=== PATIENT | male | born 1945 | race Caucasian/White ===

== ENCOUNTER → 2023-12-07 11:24 | Outpatient (REF) | payer MEDICARE, OTHER, SELFPAY ==
[2023-12-07 12:12] LABS: Hematocrit 39.8 % (39.0-52.0); Hemoglobin 12.4 g/dL (13.0-18.0); Mean Corp Hgb Conc. 31.2 g/dL (33.0-37.0); Mean Corpuscular Hgb 27.9 pg (27.0-31.0); Mean Corpuscular Volume 89.6 fL (80.0-94.0); Mean Platelet Volume 10.4 fL (7.4-10.4); Platelet Count 296 10^3/uL (130-400); Red Blood Cell Count 4.44 10^6/uL (4.70-6.10); Red Cell Dist. Width 14.8 % (11.5-14.5); White Blood Cell Count 5.1 10^3/uL (4.8-10.8)
[2023-12-07 12:22] LABS: Urine Albumin Trace (Neg - Trace); Urine Bilirubin Negative (Negative); Urine Character Slightly Cloudy (Clear); Urine Color Yellow; Urine Glucose Trace (Negative); Urine Ketone Negative (Negative); Urine Leukocyte 2+ (Negative); Urine Nitrite Positive (Negative); Urine Occult Blood Negative (Negative); Urine Urobilinogen Negative (Neg - 1+)
[2023-12-07 12:41] LABS: NT-proBNP 2020 pg/ml
[2023-12-07 13:05] LABS: Urine Bacteria Moderate (Negative); Urine Red Blood Cell 0-2 /HPF (0-2); Urine White Cell 26-30 /HPF (0-5)
[2023-12-07 13:15] LABS: Urine Protein 59 mg/dl (0-12)
[2023-12-07 13:35] LABS: Albumin 3.8 g/dl (3.5-5.0); Blood Urea Nitrogen 36 mg/dl (9-20); Carbon Dioxide 28 mmol/L (22-30); Chloride 103 mmol/L (98-107); Glucose 91 mg/dl (70-99); Phosphorus 3.5 mg/dl (2.5-4.5); Potassium 4.5 mmol/L (3.5-5.1); Sodium 139 mmol/L (135-145); Uric Acid 6.1 mg/dl (3.5-8.5); eGFR 29.72
== END ==
LOC: REG 11:24
PROVIDERS: ATTENDING PHYSICIAN Internal Medicine
DX: N18.4 Chronic kidney disease, stage 4 (severe) (principal); D64.9 Anemia, unspecified; Z94.1 Heart transplant status; Z87.39 Personal history of other diseases of the musculoskeletal system and connective tissue
CPT/HCPCS: 36415; 80069; 81003; 81015; 82570; 83880; 84156; 84550; 85027

== ENCOUNTER → 2024-01-13 10:56 | Outpatient (REF) | payer MEDICARE, OTHER, SELFPAY ==
[2024-01-13 11:38] LABS: % Basophils 0.3 % (0-2); % Eosinophils 5.3 % (0-6); % Immature Granulocytes 0.3 % (0-0.5); % Lymphocytes 26.7 % (20.5-51.1); % Monocytes 9.6 % (1.7-9.3); % Neutrophils 57.8 % (42.2-75.2); Absolute Eosinophils 0.2 10^3/uL (0-0.7); Absolute Lymphocytes 1.1 10^3/uL (1.2-3.4); Absolute Monocytes 0.4 10^3/uL (0.1-0.6); Absolute Neutrophils 2.3 10^3/uL (1.4-6.5); Hematocrit 33.1 % (39.0-52.0); Hemoglobin 10.3 g/dL (13.0-18.0); Mean Corp Hgb Conc. 31.1 g/dL (33.0-37.0); Mean Corpuscular Hgb 27.7 pg (27.0-31.0); Mean Platelet Volume 9.6 fL (7.4-10.4); Nucleated Red Blood Cells % 0 % (-); Platelet Count 334 10^3/uL (130-400); Red Blood Cell Count 3.72 10^6/uL (4.70-6.10); Red Cell Dist. Width 14.3 % (11.5-14.5)
[2024-01-13 12:09] LABS: ALT (SGPT) 16 U/L (0-50); AST (SGOT) 25 U/L (17-59); Albumin 3.7 g/dl (3.5-5.0); Alkaline Phosphatase 73 U/L (38-126); Blood Urea Nitrogen 66 mg/dl (9-20); Carbon Dioxide 27 mmol/L (22-30); Chloride 106 mmol/L (98-107); Glucose 92 mg/dl (70-99); Potassium 4.4 mmol/L (3.5-5.1); Sodium 140 mmol/L (135-145); Total Bilirubin 0.4 mg/dl (0.2-1.3); Total Protein 5.8 g/dl (6.3-8.2); eGFR 18.27
== END ==
LOC: REG 10:56
PROVIDERS: ATTENDING PHYSICIAN Nurse Practitioner Adult Health
DX: D63.1 Anemia in chronic kidney disease (principal); N18.30 Chronic kidney disease, stage 3 unspecified; D51.9 Vitamin B12 deficiency anemia, unspecified; D50.9 Iron deficiency anemia, unspecified; M81.0 Age-related osteoporosis without current pathological fracture; C61 Malignant neoplasm of prostate
CPT/HCPCS: 36415; 80053; 85025

== ENCOUNTER → 2024-02-02 12:18 | Outpatient (REF) | payer MEDICARE, OTHER, SELFPAY ==
[2024-02-02 13:59] LABS: Blood Urea Nitrogen 35 mg/dl (9-20); Calcium 10.3 mg/dl (8.4-10.2); Carbon Dioxide 31 mmol/L (22-30); Chloride 103 mmol/L (98-107); Digoxin 0.9 ng/ml (0.8-2.0); Glucose 82 mg/dl (70-99); Magnesium 1.6 mg/dl (1.6-2.3); Phosphorus 3.7 mg/dl (2.5-4.5); Potassium 5.3 mmol/L (3.5-5.1); Sodium 140 mmol/L (135-145); Uric Acid 6.1 mg/dl (3.5-8.5)
[2024-02-02 14:01] LABS: Protein/creatinine Ratio 0.3; Urine Protein 11 mg/dl
[2024-02-02 14:04] LABS: NT-proBNP 1390 pg/ml
[2024-02-02 21:13] LABS: Urine Albumin Negative (Neg - Trace); Urine Bilirubin Negative (Negative); Urine Character Clear (Clear); Urine Color Yellow; Urine Glucose Negative (Negative); Urine Ketone Negative (Negative); Urine Leukocyte 2+ (Negative); Urine Nitrite Negative (Negative); Urine Occult Blood Negative (Negative); Urine Urobilinogen Negative (Neg - 1+); Urine pH 6.5 (5.0-9.0)
[2024-02-02 21:46] LABS: Urine Red Blood Cell None Seen /HPF (0-2)
[2024-02-02 21:47] LABS: Urine Bacteria Few (Negative); Urine Squamous Cell 0-2 /LPF (Few)
== END ==
LOC: REG 12:18
PROVIDERS: ATTENDING PHYSICIAN Specialist; FAMILY PHYSICIAN Internal Medicine
DX: N17.9 Acute kidney failure, unspecified (principal)
CPT/HCPCS: 36415; 80069; 80162; 81003; 81015; 82570; 83735; 83880; 83970; 84156; 84550

== ENCOUNTER → 2024-02-15 09:23 | Outpatient (REF) | payer MEDICARE, OTHER, SELFPAY ==
[2024-02-15 09:37] LABS: % Basophils 0.3 % (0-2); % Eosinophils 5.5 % (0-6); % Immature Granulocytes 0.3 % (0-0.5); % Lymphocytes 22.3 % (20.5-51.1); % Monocytes 10.1 % (1.7-9.3); % Neutrophils 61.5 % (42.2-75.2); Absolute Eosinophils 0.2 10^3/uL (0-0.7); Absolute Lymphocytes 0.7 10^3/uL (1.2-3.4); Absolute Monocytes 0.3 10^3/uL (0.1-0.6); Hematocrit 37.7 % (39.0-52.0); Hemoglobin 11.3 g/dL (13.0-18.0); Mean Corpuscular Hgb 27.3 pg (27.0-31.0); Mean Corpuscular Volume 91.1 fL (80.0-94.0); Mean Platelet Volume 8.8 fL (7.4-10.4); Platelet Count 229 10^3/uL (130-400); Red Blood Cell Count 4.14 10^6/uL (4.70-6.10); Red Cell Dist. Width 14.6 % (11.5-14.5); White Blood Cell Count 3.3 10^3/uL (4.8-10.8)
[2024-02-15 10:09] LABS: Nucleated Red Blood Cells % 0 % (-); Reticulocyte Count 1.8 % (0.4-2.8)
[2024-02-15 10:22] LABS: ALT (SGPT) 18 U/L (0-50); AST (SGOT) 26 U/L (17-59); Albumin 4.1 g/dl (3.5-5.0); Alkaline Phosphatase 68 U/L (38-126); Blood Urea Nitrogen 40 mg/dl (9-20); Calcium 9.8 mg/dl (8.4-10.2); Carbon Dioxide 30 mmol/L (22-30); Chloride 103 mmol/L (98-107); Glucose 78 mg/dl (70-99); Iron 73 ug/dl (49-181); Potassium 4.5 mmol/L (3.5-5.1); Sodium 139 mmol/L (135-145); Total Bilirubin 0.5 mg/dl (0.2-1.3); Total Protein 6.2 g/dl (6.3-8.2); eGFR 21.34
[2024-02-15 10:32] LABS: Percent Saturation 25 % (20-50); Total Iron Binding Capacity 286 ug/dl (261-462)
[2024-02-15 10:55] LABS: D-Dimer 1.23 ug/mlFEU (0.00-0.50)
[2024-02-15 11:21] LABS: PSA, Total - Diagnostic < 0.06 ng/ml (0.0-4.0)
[2024-02-15 11:40] LABS: Vitamin B12 793 pg/ml (239-931)
[2024-02-16 14:30] LABS: Erythropoietin (EPO) 22 mU/mL (4-27)
== END ==
LOC: OIDL 09:23
PROVIDERS: ATTENDING PHYSICIAN Internal Medicine Hematology & Oncology; PRIMARYCARE PHYSICIAN Internal Medicine
DX: D63.1 Anemia in chronic kidney disease (principal); N18.31 Chronic kidney disease, stage 3a; D51.9 Vitamin B12 deficiency anemia, unspecified; D50.9 Iron deficiency anemia, unspecified; C61 Malignant neoplasm of prostate
CPT/HCPCS: 80053; 82607; 82668; 82728; 83540; 83550; 84153; 85025; 85045; 85379

== ENCOUNTER → 2024-02-27 09:53 | Outpatient (REF) | payer MEDICARE, OTHER, SELFPAY ==
[2024-03-01 16:39] LABS: Sirolimus (Rapamycin) 3.4 ng/mL
== END ==
LOC: HWRAD 09:53
PROVIDERS: ATTENDING PHYSICIAN Specialist; FAMILY PHYSICIAN Internal Medicine; REFERRING PHYSICIAN Internal Medicine Cardiovascular Disease
DX: N17.9 Acute kidney failure, unspecified (principal); Z94.1 Heart transplant status
CPT/HCPCS: 36415; 76775; 80195

== ENCOUNTER → 2024-03-08 15:16 | Outpatient (REF) | payer MEDICARE, OTHER, SELFPAY ==
[2024-03-08 16:07] LABS: Blood Urea Nitrogen 42 mg/dl (9-20); Calcium 9.5 mg/dl (8.4-10.2); Carbon Dioxide 31 mmol/L (22-30); Chloride 104 mmol/L (98-107); Glucose 83 mg/dl (70-99); Potassium 4.4 mmol/L (3.5-5.1); Sodium 145 mmol/L (135-145); eGFR 24.32
[2024-03-08 16:16] LABS: NT-proBNP 1660 pg/ml
== END ==
LOC: RAD 15:16
PROVIDERS: ATTENDING PHYSICIAN Specialist
DX: N18.4 Chronic kidney disease, stage 4 (severe) (principal); Z94.1 Heart transplant status; R60.0 Localized edema
CPT/HCPCS: 36415; 80048; 83880

== ENCOUNTER → 2024-03-18 10:16 | Outpatient (REF) | payer MEDICARE, OTHER, SELFPAY | LOC: RCS 10:16 | PROVIDERS: ATTENDING PHYSICIAN Internal Medicine Cardiovascular Disease; FAMILY PHYSICIAN Internal Medicine | DX: Z94.1 Heart transplant status (principal) | CPT/HCPCS: 93306 ==

== ENCOUNTER → 2024-04-16 12:02 | Outpatient (REF) | payer MEDICARE, OTHER, SELFPAY | LOC: WOUND 12:02 | PROVIDERS: ATTENDING PHYSICIAN Surgery | DX: L97.222 Non-pressure chronic ulcer of left calf with fat layer exposed (principal); I87.2 Venous insufficiency (chronic) (peripheral); I73.9 Peripheral vascular disease, unspecified; N18.4 Chronic kidney disease, stage 4 (severe); D84.9 Immunodeficiency, unspecified; Z86.711 Personal history of pulmonary embolism; Z94.1 Heart transplant status; D64.9 Anemia, unspecified; Z79.01 Long term (current) use of anticoagulants | CPT/HCPCS: 11042; 99204 ==

== ENCOUNTER → 2024-04-23 10:44 | Outpatient (REF) | payer MEDICARE, OTHER, SELFPAY | LOC: WOUND 10:44 | PROVIDERS: ATTENDING PHYSICIAN Surgery | DX: L97.222 Non-pressure chronic ulcer of left calf with fat layer exposed (principal); I87.2 Venous insufficiency (chronic) (peripheral); I73.9 Peripheral vascular disease, unspecified; N18.4 Chronic kidney disease, stage 4 (severe); D84.9 Immunodeficiency, unspecified; D64.9 Anemia, unspecified; Z94.1 Heart transplant status; Z86.711 Personal history of pulmonary embolism; Z79.01 Long term (current) use of anticoagulants | CPT/HCPCS: 99213 ==

== ENCOUNTER → 2024-12-20 09:48 | Outpatient (REF) | payer MEDICARE, OTHER, SELFPAY ==
[2024-12-20 11:03] LABS: % Basophils 0.5 % (0-2); % Eosinophils 3.4 % (0-6); % Immature Granulocytes 0.4 % (0-0.5); % Lymphocytes 10.5 % (20.5-51.1); % Neutrophils 78.2 % (42.2-75.2); Absolute Eosinophils 0.2 10^3/uL (0-0.7); Absolute Lymphocytes 0.6 10^3/uL (1.2-3.4); Absolute Monocytes 0.4 10^3/uL (0.1-0.6); Absolute Neutrophils 4.4 10^3/uL (1.4-6.5); Hematocrit 31.7 % (39.0-52.0); Hemoglobin 9.3 g/dL (13.0-18.0); Mean Corp Hgb Conc. 29.3 g/dL (33.0-37.0); Mean Corpuscular Hgb 26.6 pg (27.0-31.0); Mean Corpuscular Volume 90.8 fL (80.0-94.0); Mean Platelet Volume 9.9 fL (7.4-10.4); Nucleated Red Blood Cells % 0 % (-); Platelet Count 319 10^3/uL (130-400); Red Blood Cell Count 3.49 10^6/uL (4.70-6.10); Red Cell Dist. Width 17.7 % (11.5-14.5); White Blood Cell Count 5.6 10^3/uL (4.8-10.8)
[2024-12-20 11:34] LABS: Protein/creatinine Ratio 0.3; Urine Protein 25 mg/dl
[2024-12-20 12:25] LABS: ALT (SGPT) 13 U/L (0-50); AST (SGOT) 18 U/L (17-59); Albumin 3.9 g/dl (3.5-5.0); Alkaline Phosphatase 67 U/L (38-126); Blood Urea Nitrogen 36 mg/dl (9-20); Calcium 9.2 mg/dl (8.4-10.2); Carbon Dioxide 26 mmol/L (22-30); Chloride 106 mmol/L (98-107); Glucose 75 mg/dl (70-99); Magnesium 2.2 mg/dl (1.6-2.3); Phosphorus 3.2 mg/dl (2.5-4.5); Potassium 4.4 mmol/L (3.5-5.1); Sodium 142 mmol/L (135-145); Total Bilirubin 0.5 mg/dl (0.2-1.3); Total Protein 6.4 g/dl (6.3-8.2); Urine Albumin 2+ (Neg - Trace); Urine Bilirubin Negative (Negative); Urine Character Clear (Clear); Urine Color Yellow; Urine Glucose 3+ (Negative); Urine Ketone Negative (Negative); Urine Leukocyte 3+ (Negative); Urine Nitrite Positive (Negative); Urine Occult Blood Negative (Negative); Urine Urobilinogen Negative (Neg - 1+)
[2024-12-20 12:46] LABS: Urine Bacteria Moderate (Negative); Urine Red Blood Cell 0-2 /HPF (0-2); Urine Squamous Cell 21-25 /LPF (Few); Urine White Cell 40-50 /HPF (0-5)
[2024-12-20 14:12] LABS: Intact PTH 80.5 pg/ml (13.6-85.8)
[2024-12-22 11:21] LABS: Sirolimus (Rapamycin) <2.0 ng/mL
== END ==
LOC: REG 09:48
PROVIDERS: ATTENDING PHYSICIAN Specialist
DX: E87.20 Acidosis, unspecified (principal); N18.4 Chronic kidney disease, stage 4 (severe); N17.9 Acute kidney failure, unspecified
CPT/HCPCS: 36415; 80053; 80195; 81003; 81015; 82570; 83735; 83970; 84100; 84156; 85025

== ENCOUNTER → 2024-12-26 10:48 | Outpatient (REF) | payer MEDICARE, OTHER, SELFPAY ==
[2024-12-26 11:42] LABS: % Basophils 0.5 % (0-2); % Eosinophils 3.8 % (0-6); % Immature Granulocytes 0.4 % (0-0.5); % Lymphocytes 13.9 % (20.5-51.1); % Neutrophils 71.4 % (42.2-75.2); Absolute Eosinophils 0.2 10^3/uL (0-0.7); Absolute Lymphocytes 0.8 10^3/uL (1.2-3.4); Absolute Monocytes 0.6 10^3/uL (0.1-0.6); Absolute Neutrophils 3.9 10^3/uL (1.4-6.5); Hematocrit 28.6 % (39.0-52.0); Hemoglobin 8.5 g/dL (13.0-18.0); Mean Corp Hgb Conc. 29.7 g/dL (33.0-37.0); Mean Corpuscular Hgb 26.6 pg (27.0-31.0); Mean Corpuscular Volume 89.4 fL (80.0-94.0); Mean Platelet Volume 9.3 fL (7.4-10.4); Nucleated Red Blood Cells % 0 % (-); Platelet Count 398 10^3/uL (130-400); Red Cell Dist. Width 17.7 % (11.5-14.5); White Blood Cell Count 5.5 10^3/uL (4.8-10.8)
== END ==
LOC: REG 10:48
PROVIDERS: ATTENDING PHYSICIAN Internal Medicine
DX: N18.4 Chronic kidney disease, stage 4 (severe) (principal)
CPT/HCPCS: 36415; 85025

== ENCOUNTER 2025-03-22 11:14 | Emergency (ER) | payer MEDICARE, OTHER, SELFPAY ==
[2025-03-22 11:16] VITALS: BP 121/84
--- NOTE | 2025-03-22 12:32 | ED.GENMED ---
History of Present Illness
<Tae Kumar PA-C - Last Filed: 03/22/25 12:36>
General
Chief Complaint: Post Operative Problem(s)
Source: patient
Exam Limitations: none
Time Seen by Provider: 03/22/25 12:06
History of Present Illness
History of Present Illness:
79 year old male presents with bleeding wound from left face/ear. He had Mohs procedure performed yesterday. He is not anticoagulated but he is a heart transplant patient. He started bleeding last evening and Oozing overnight. No other complaint
Past History
<Tae Kumar PA-C - Last Filed: 03/22/25 12:36>
Past History
ED Past Medical History: Cancer (Prostate cancer), CHF (Severe ischemic cardiomyopathy), HTN, Hypercholesterolemia and Other (cardiomyopathy)
ED Past Surgical History: Cardiac (Heart transplant August 2013) and Urological (Polyp removal from bladder)
Social History
Tobacco: Non-smoker
Alcohol: Occasional
Drug: None
Personal: Partner
Family History
Family History: Unable to obtain
Phy Exam
<Tae Kumar PA-C - Last Filed: 03/22/25 12:36>
Physical Exam
Physical Exam:
General: Well-appearing male no acute respiratory distress
HEENT: Normal cephalic atraumatic skin: Well-appearing surgical wound left face/ear area. From the inferior portion wound there is mild oozing. There is also a slight ooze from the apex of the flap
Course
<GREGORY Glover Last Filed: 03/22/25 12:36>
Vital Signs
Initial and Last Documented VS:
Initial Vital Signs
Temp Pulse Resp BP Pulse Ox
98.8 F 77 20 121/84 98
03/22/25 11:16 03/22/25 11:16 03/22/25 11:16 03/22/25 11:16 03/22/25 11:16
Last Documented Vital Signs
Temp Pulse Resp BP Pulse Ox
98.8 F 77 20 121/84 98
03/22/25 11:16 03/22/25 11:16 03/22/25 11:16 03/22/25 11:16 03/22/25 12:36
<Darnell Hamilton DO - Last Filed: 03/22/25 13:08>
Vital Signs
Initial and Last Documented VS:
Initial Vital Signs
Temp Pulse Resp BP Pulse Ox
98.8 F 77 20 121/84 98
03/22/25 11:16 03/22/25 11:16 03/22/25 11:16 03/22/25 11:16 03/22/25 11:16
Last Documented Vital Signs
Temp Pulse Resp BP Pulse Ox
98.8 F 77 20 121/84 98
03/22/25 11:16 03/22/25 11:16 03/22/25 11:16 03/22/25 11:16 03/22/25 12:36
<Tae Kumar PA-C - Last Filed: 03/22/25 12:36>
MDM/Problems Addressed
Differential Diagnosis Includes:
Bleeding from wound from recent Mohs procedure. The area was cleansed with saline and anesthetized 1% lidocaine with epinephrine. A suture was placed over the inferior portion of the wound as well as over the apex near the flap. 5-0 Prolene was
used. 2 sutures were placed in a simple provide hemostasis. Dressing reapplied stable for discharge
<Tae Kumar PA-C - Last Filed: 03/22/25 12:36>
*Pulse Oximetry
SaO2: 98
Oxygen Mode of Delivery: Room air
Patient hypoxic: no
*Critical Care Note
Total Time (30-74mins, 75-104mins- exclusive of procedures): Not Applicable
ED Attending Note
<Tae Kumar PA-C - Last Filed: 03/22/25 12:36>
-
Portions of this chart may have been created with voice recognition software.� Occasional wrong word or��sound alike� substitutions may have occurred due to the inherent limitations of voice recognition software.
<Darnell Hamilton DO - Last Filed: 03/22/25 13:08>
ED Attending Note
Patient seen and examined by attending physician: Yes
I performed the substantive portion of visit, reviewed & personally made and approve the management plan that is documented in note by myself or CARON.: Yes
Discharge Plan
Departure
Patient Disposition: Home (Routine Discharge)
Date of Disposition: 03/22/25
Time of Disposition: 12:35
Patient with high blood pressure during this ER visit?: No
Discharge Problem:
Bleeding from wound
Prescriptions:
No Action
bupropion HCl 150 MG tablet sustained-release 12 hr
150 mg PO DAILY
pantoprazole 40 MG tablet,delayed release (DR/EC)
40 mg PO DAILY
sertraline 25 MG tablet
25 mg PO DAILY
magnesium oxide 400 MG tablet
400 mg PO DAILY
mycophenolate mofetil 250 MG capsule
750 mg PO Q12H
tamsulosin 0.4 MG capsule
0.8 mg PO DAILY
diltiazem HCl 120 MG capsule,extended release 24hr
120 mg PO DAILY
multivitamin [Daily Vitamin] 1 EACH tablet
1 ea PO DAILY
bicalutamide 50 MG tablet
50 mg PO DAILY
gabapentin [Neurontin] 600 MG tablet
600 mg PO BID
diphenoxylate-atropine 1 TABLET tablet
1 tab PO PRN PRN (Reason: diarrhea)
allopurinol 100 MG tablet
100 mg PO DAILY
iron bis glyc,ps complex-vit C 1 EACH capsule
1 cap PO DAILY
atorvastatin 40 MG tablet
40 mg PO QPM
Fibercon:
1 tab PO QPM
flurazepam [Dalmane] 30 MG capsule
30 mg PO HS PRN (Reason: sleep)
cyanocobalamin (vitamin B-12) 1,000 MCG tablet extended release
1,000 mcg PO DAILY
diphenhydramine HCl [Banophen] 50 MG capsule
50 mg PO HSPRN PRN (Reason: sleep)
methenamine hippurate 1 GRAM tablet
1 g PO BID
potassium chloride [Klor-Con M20] 20 MEQ tablet,ER particles/crystals
10 meq PO BID
sirolimus 0.5 MG tablet
2.5 mg PO DAILY
goserelin [Zoladex] 3.6 MG implant
3.6 mg SQ .[id number]
ascorbic acid (vitamin C) [Vitamin C] 500 MG tablet
500 mg PO BID
cephalexin [Keflex] 500 MG capsule
500 mg PO QID Qty: 20 0RF
Referrals:
Reilly Tabor MD [Family Provider, Internal Medicine]
Activity Restrictions/Additional Instructions:
Return if needed
Interventions
Interventions:
*Risk Screen - Suicide Last Done: 03/22/25 11:16
*General Assessment Last Done: 03/22/25 11:16
*Neglect/Abuse Screening Last Done: 03/22/25 11:16
*Nursing Disposition Last Done: 03/22/25 13:02
ED-Skin Assessment Last Done: 03/22/25 13:02
Discharge Date and Time
Discharge Date/Time: 03/22/25 13:03
Print Language: [id number]
== END 2025-03-22 13:03 | disposition home or self-care (01) ==
LOC: EMR 11:14
PROVIDERS: EMERGENCY PHYSICIAN Emergency Medicine; FAMILY PHYSICIAN Internal Medicine
DX: L76.21 Postprocedural hemorrhage of skin and subcutaneous tissue following a dermatologic procedure (principal); I25.5 Ischemic cardiomyopathy; I11.0 Hypertensive heart disease with heart failure; I50.9 Heart failure, unspecified; E78.00 Pure hypercholesterolemia, unspecified; Z95.812 Presence of fully implantable artificial heart; Z85.828 Personal history of other malignant neoplasm of skin; Z85.46 Personal history of malignant neoplasm of prostate
CPT/HCPCS: 99282; 12011